=== PATIENT | female | born 1995 | race Caucasian/White ===

== ENCOUNTER 2021-08-30 02:55 | Inpatient (IN) | payer BC, MEDICAID ==
[2021-08-30] MEDS ORDERED: Nalbuphine 10 MG/1 ML Vial IVPUSH PRN (03:44)
[2021-08-30] MEDS ORDERED: Ondansetron 4 MG/2 ML SDV IVPUSH PRN (03:44)
[2021-08-30] MEDS ORDERED: Oxytocin/Lactated Ringers 10 UNIT/1,000 ML BAG IV SCH ×2 (03:45→05:00)
--- NOTE | 2021-08-30 03:46 | PCM.LDHP ---
L&D History of Present Illness - General Date of Service: 08/30/21 Admit Problem/Dx: Patient Status Order with Admit Dx/Problem 08/30/21 03:04 Patient Status [ADT] Routine 08/30/21 03:44 Patient Status [ADT] Routine Admission Diagnosis/Problem Admission Diagnosis/Problem Source of Information: Patient History Limitations: Reports: No Limitations - History of Present Illness Introduction:: Patient is a 26 y/o at 39 2/7 wks who presents with SROM. Occurred at about 2100 yesterday. Doing well currently. No particularly bothersome contractions yet - Related Data Allergies/Adverse Reactions: Allergies Allergy/AdvReac Type Severity Reaction Status Date / Time fentanyl Allergy Tachycardia Verified 08/30/21 05:53 hydromorphone [From Dilaudid] Allergy Tachycardia Verified 08/30/21 05:53 Home Medications: Home Meds Vits #93/Iron Fum/FA [ Formula Tablet] 1 tab PO DAILY 08/15/21 [History] Past Medical History : 2 Para: 1 LMP (Approximate): Other (See Below) (Hx of hemorrhage) Musculoskeletal History: Reports: Other (See Below) (Scoliosis and Klippel-Feil syndrome) - Past Surgical History HEENT Surgical History: Reports: Tonsillectomy GI Surgical History: Reports: Appendectomy Dermatological Surgical History: Reports: Other (See Below) (Lip repair) Social & Family History - Tobacco Use Tobacco Use Status *Q: Former Tobacco User - Alcohol Use Alcohol Use History: No - Recreational Drug Use Recreational Drug Type: Reports: Marijuana/Hashish H&P Review of Systems - Review of Systems: Review Of Systems: See Below General: Reports: No Symptoms Pulmonary: Reports: No Symptoms Cardiovascular: Reports: No Symptoms Gastrointestinal: Reports: No Symptoms Genitourinary: Reports: No Symptoms Musculoskeletal: Reports: No Symptoms Psychiatric: Reports: No Symptoms Neurological: Reports: No Symptoms L&D Exam - Exam Exam: See Below - OB Specific Contraction Intensity: Irritability Movement: Active Heart Tones: Present Heart Tones per Min: 125 Heart Rate (FHR) Variability: Moderate (6-25 bpm) Presentation: Vertex - Crowell Score Crowell Score Cervix Position: Midposition Crowell Score Consistency: Medium Crowell Score Effacement: 51-70% Crowell Score Dilation: 1-2 cm Crowell Score 's Station: -2 Crowell Score Total: 6 - Exam General: Alert, Oriented, Cooperative Lungs: Clear to Auscultation, Normal Respiratory Effort Cardiovascular: Regular Rate, Regular Rhythm GI/Abdominal Exam: Soft, Non-Tender Genitourinary: Normal external exam Extremities: Normal Inspection Skin: Warm, Dry, Intact - Patient Data Lab Results Last 24 hrs: Laboratory Results - last 24 hr 08/30/21 Range/Units 03:20 Membrane Rupture Positive H Result Diagrams: 08/30/21 04:00 - Problem List (1) 39 weeks gestation of SNOMED Code(s): 00028010 ICD Code: Z3A.39 - 39 WEEKS GESTATION OF Status: Acute Current Visit: Yes (2) PROM (premature rupture of membranes) SNOMED Code(s): 90854418 ICD Code: O42.90 - MICHAEL ROM, 7TH0 BETW RUPT & ONST LABR, UNSP WEEKS OF GEST Status: Acute Current Visit: Yes Qualifiers: PROM onset of labor timing: unspecified duration between rupture of membranes and onset of labor PROM gestational age: full term Qualified Code(s): O42.92 - Full-term premature rupture of membranes, unspecified as to length of time between rupture and onset of labor Problem List Initiated/Reviewed/Updated: Yes Orders Last 24hrs: Active Orders 24 hr Category Date Time Status Patient Status [ADT] Routine ADT 08/30/21 03:04 Active Patient Status [ADT] Routine ADT 08/30/21 03:44 Ordered Activity as Tolerated [RC] PFP Care 08/30/21 03:44 Ordered Communication Order [RC] ASDIRECTED Care 08/30/21 03:44 Ordered Heart Tones [RC] ASDIRECTED Care 08/30/21 03:44 Ordered Non Stress Test [RC] PER UNIT ROUTINE Care 08/30/21 03:04 Active Notify Provider [RC] PFP Care 08/30/21 03:44 Ordered Notify Provider [RC] PRN Care 08/30/21 03:44 Ordered Peripheral IV Care [RC] . DIRECTED Care 08/30/21 03:44 Ordered Vaginal Exam [RC] PRN Care 08/30/21 03:04 Active Vital Signs [RC] PER UNIT ROUTINE Care 08/30/21 03:04 Active Vital Signs [RC] PER UNIT ROUTINE Care 08/30/21 03:44 Ordered Regular Diet [DIET] Diet 08/30/21 Breakfast Ordered CBC W/O DIFF,HEMOGRAM [HEME] Routine Lab 08/30/21 03:44 Ordered CORONAVIRUS COVID-19 SUSIE [MOLEC] Stat Lab 08/30/21 03:45 Ordered RAPID PLASMA REAGIN,RPR [CHEM] Routine Lab 08/30/21 03:44 Ordered TYPE AND SCREEN [BBK] Routine Lab 08/30/21 03:44 Ordered Lactated Ringers [Ringers, Lactated] 1,000 ml Med 08/30/21 03:45 Ordered IV ASDIRECTED Nalbuphine [Nubain] Med 08/30/21 03:44 Ordered 10 mg IVPUSH Q2H PRN Ondansetron [Zofran] Med 08/30/21 03:44 Ordered 4 mg IVPUSH Q4H PRN Oxytocin/Lactated Ringers [Pitocin in LR 10 Units/1,000 Med 08/30/21 03:45 Ordered ML] 10 unit in 1,000 ml IV .CONTINUOUS Sodium Chloride 0.9% [Saline Flush] Med 08/30/21 09:00 Ordered 10 ml FLUSH 0900,2100 Electronic Heart Tones Ext w TOCO [WOMSER] Oth 08/30/21 03:44 Ordered Routine Electronic Heart Tones Internal [WOMSER] Per Unit Oth 08/30/21 03:44 Ordered Routine Peripheral IV Insertion Adult [OM.PC] Routine Oth 08/30/21 03:44 Ordered Resuscitation Status Routine Resus Stat 08/30/21 03:04 Ordered Assessment/Plan Comment:: * Labs to be done * GBS negative * Given already 6 hours post rupture without significant contractions recommend augmentation with pitocin. She agrees. * Pain management per patient preference * Anticipate
[2021-08-30] MEDS: Lactated Ringers 1,000 ML IV SCH ×3 (04:50→11:30)
[2021-08-30] MEDS ORDERED: Sodium Chloride 0.9% 10 ML Syringe FLUSH SCH (09:00)
[2021-08-30] MEDS ORDERED: diphenhydrAMINE 50 MG/ML SDV IVPUSH PRN (10:27)
[2021-08-30] MEDS ORDERED: Lidocaine 1.5% with EPINEPHrine 1:200,000 5 ML Amp ONE (10:27)
[2021-08-30] MEDS ORDERED: ePHEDrine 50 MG/ML SDV IVPUSH PRN (10:27)
[2021-08-30] MEDS ORDERED: Bupivacaine/fentaNYL/NS 100 ML Bag EPIDUR PRN (10:27)
[2021-08-30] MEDS ORDERED: Bupivacaine 0.25% 10 ML SDV ONE (10:27)
--- NOTE | 2021-08-30 10:43 | PCM.PNLD ---
Labor Progress Note - VS & Meds Vital Signs: Last Vital Signs Temp 37.1 C 08/30/21 04:00 Pulse 100 08/30/21 04:00 Resp 16 08/30/21 04:00 BP 123/72 08/30/21 04:00 Pulse Ox 100 08/30/21 04:00 Active Medications: Current Medications Diphenhydramine HCl (Diphenhydramine 50 Mg/Ml Sdv) 25 mg IVPUSH Q6H PRN PRN Reason: pruritis Ephedrine Sulfate (Ephedrine 50 Mg/Ml Sdv) 5 mg IVPUSH ASDIRECTED PRN PRN Reason: Hypotension Fentanyl (Fentanyl 100 Mcg/2 Ml Sdv) 100 mcg EPIDUR Q3H PRN PRN Reason: Pain Fentanyl/Bupivacaine HCl (Bupivacaine/Fentanyl/Ns 100 Ml Bag) 100 ml EPIDUR ASDIRECTED PRN PRN Reason: Pain Lactated Ringer's (Ringers, Lactated) 1,000 mls @ 100 mls/hr IV ASDIRECTED SANTIAGO Last Admin: 08/30/21 10:23 Dose: 999 mls/hr Documented by: Oxytocin/Lactated Ringer's (Pitocin In Lr 10 Units/1,000 Ml) 10 unit in 1,000 mls @ 500 mls/hr IV .CONTINUOUS SANTIAGO Oxytocin/Lactated Ringer's (Pitocin In Lr 10 Units/1,000 Ml) 10 unit in 1,000 mls @ 12 mls/hr IV TITRATE SANTIAGO; Protocol Last Titration: 08/30/21 09:15 Dose: 14 munits/min, 84 mls/hr Documented by: Nalbuphine HCl (Nalbuphine 10 Mg/1 Ml Vial) 10 mg IVPUSH Q2H PRN PRN Reason: Pain Ondansetron HCl (Ondansetron 4 Mg/2 Ml Sdv) 4 mg IVPUSH Q4H PRN PRN Reason: Nausea/Vomiting Sodium Chloride (Sodium Chloride 0.9% 10 Ml Syringe) 10 ml FLUSH 0900,2100 SANTIAGO - Uterine Contractions Uterine Monitoring Mode: External [place] Contraction Intensity: Moderate - Monitoring Monitor Mode: External Ultrasound Heart Rate (FHR) Baseline: 140 Heart Rate (FHR) Variability: Moderate (6-25 bpm) Accelerations: Present, 15x15 Decelerations: None Strip Review: Category I - Vaginal Exam Dilation (cm): 3-4 Effacement (Percent): 80 Station: -2 Cervical Position: Posterior - Labor Progress (Free Text) Labor Progress: Doing well. Requesting epidural. Repeat US confirms still VTX presentation.
--- NOTE | 2021-08-30 10:46 | PCM.PREANE ---
Preanesthetic Assessment - Anesthesia/Transfusion/Family Hx Anesthesia History: Prior Anesthesia Without Reaction Transfusion History: Prior Transfusion Without Reaction - Review of Systems General: No Symptoms Pulmonary: No Symptoms Cardiovascular: No Symptoms, Other (AV septum defect) Gastrointestinal: No Symptoms Neurological: No Symptoms, Other (Klipper Feil Syndrome, thoracic scoliosis) Other: Reports: None - Physical Assessment Vital Signs: Last Vital Signs Temp 98.8 F 08/30/21 04:00 Pulse 100 08/30/21 04:00 Resp 16 08/30/21 04:00 BP 123/72 08/30/21 04:00 Pulse Ox 100 08/30/21 04:00 Height: 1.5 m Weight: 62.596 kg ASA Class: 2 Mental Status: Alert & Oriented x3 Airway Class: Mallampati = 2 Dentition: Reports: Normal Dentition, Broken Tooth/Teeth (left bottom molars), Missing Tooth/Teeth (upper right molars) Thyro-Mental Finger Breadths: 3 Mouth Opening Finger Breadths: 3 ROM/Head Extension: Full Lungs: Clear to Auscultation, Normal Respiratory Effort Cardiovascular: Regular Rate, Regular Rhythm, Murmurs - Lab Values: Laboratory Last Values WBC 10.42 K/mm3 (3.98-10.04) H 08/30/21 04:00 RBC 3.75 M/mm3 (3.98-5.22) L 08/30/21 04:00 Hgb 11.0 gm/dl (11.2-15.7) L 08/30/21 04:00 Hct 34.3 % (34.1-44.9) 08/30/21 04:00 MCV 91.5 fl (79.4-94.8) 08/30/21 04:00 MCH 29.3 pg (25.6-32.2) 08/30/21 04:00 MCHC 32.1 g/dl (32.2-35.5) L 08/30/21 04:00 RDW Std Deviation 46.6 fL (36.4-46.3) H 08/30/21 04:00 Plt Count 327 K/mm3 (182-369) 08/30/21 04:00 MPV 10.4 fl (9.4-12.3) 08/30/21 04:00 Urine Color Yellow (Yellow) 08/30/21 07:30 Urine Appearance Clear (Clear) 08/30/21 07:30 Urine pH 7.0 (5.0-8.0) 08/30/21 07:30 Ur Specific [place] 1.010 (1.005-1.030) 08/30/21 07:30 Urine Protein Negative (Negative) 08/30/21 07:30 Urine Glucose (UA) Negative (Negative) 08/30/21 07:30 Urine Ketones Negative (Negative) 08/30/21 07:30 Urine Occult Blood Negative (Negative) 08/30/21 07:30 Urine Nitrite Negative (Negative) 08/30/21 07:30 Urine Bilirubin Negative (Negative) 08/30/21 07:30 Urine Urobilinogen 0.2 (0.2-1.0) 08/30/21 07:30 Ur Leukocyte Esterase Trace (Negative) H 08/30/21 07:30 Urine RBC 0-5 /hpf (0-5) 08/30/21 07:30 Urine WBC 0-5 /hpf (0-5) 08/30/21 07:30 Ur Squamous Epith Cells 0-5 /hpf (0-5) 08/30/21 07:30 Urine Bacteria Rare /hpf (FEW) 08/30/21 07:30 Urine Mucus Rare /hpf (FEW) 08/30/21 07:30 Membrane Rupture Positive H 08/30/21 03:20 Urine Opiates Screen Negative (FMFQSA=258) 08/30/21 08:32 Ur Buprenorphine Scrn Negative (CUTOFF=10) 08/30/21 08:32 Ur Oxycodone Screen Negative (HJF5TF=159) 08/30/21 08:32 Urine Methadone Screen Negative (CLHVOF=775) 08/30/21 08:32 Ur Propoxyphene Screen Negative (QPNWYT=866) 08/30/21 08:32 Ur Barbiturates Screen Negative (KZSVGG=621) 08/30/21 08:32 Ur Tricyclics Screen Negative (KPJOTN=365) 08/30/21 08:32 Ur Phencyclidine Scrn Negative (CUTOFF=25) 08/30/21 08:32 Ur Amphetamine Screen Negative (HFIWZS=385) 08/30/21 08:32 U Methamphetamines Scrn Negative (YFZIAB=776) 08/30/21 08:32 U Benzodiazepines Scrn Negative (GSMETH=489) 08/30/21 08:32 U Cocaine Metab Screen Negative (RCXIOZ=989) 08/30/21 08:32 U Marijuana (THC) Screen Negative (CUTOFF=50) 08/30/21 08:32 SARS-CoV-2 RNA (SUSIE) Negative (NEGATIVE) 08/30/21 05:56 Blood Type O POSITIVE 08/30/21 04:00 Gel Antibody Screen Negative 08/30/21 04:00 - Allergies Allergies/Adverse Reactions: Allergies Allergy/AdvReac Type Severity Reaction Status Date / Time hydromorphone [From Dilaudid] Allergy Tachycardia Verified 08/30/21 05:53 fentanyl AdvReac Mild Tachycardia Unverified 08/30/21 10:44 - Acknowledgements Anesthesia Type Planned: Epidural Pt an Appropriate Candidate for the Planned Anesthesia: Yes Alternatives and Risks of Anesthesia Discussed w Pt/Guardian: Yes Pt/Guardian Understands and Agrees with Anesthesia Plan: Yes PreAnesthesia Questionnaire Cardiovascular History: Reports: Congenital Septal Defect [employer]OT[employer] History: Reports: Musculoskeletal History: Reports: Other (See Below) (Scoliosis and Klippel-Feil syndrome) Other Musculoskeletal History: Scoliosis, Klippel-Feil Syndrome - Past Surgical History HEENT Surgical History: Reports: Tonsillectomy GI Surgical History: Reports: Appendectomy Dermatological Surgical History: Reports: Other (See Below) (Lip repair) - SUBSTANCE USE Tobacco Use Status *Q: Former Tobacco User Tobacco Use Within Last Twelve Months: Cigarettes Second Hand Smoke Exposure: No Recreational Drug Use History: No Recreational Drug Type: Reports: Marijuana/Hashish - HOME MEDS Home Medications: Home Meds Vits #93/Iron Fum/FA [ Formula Tablet] 1 tab PO DAILY 08/15/21 [History] - CURRENT (IN HOUSE) MEDS Current Meds: Current Medications Diphenhydramine HCl (Diphenhydramine 50 Mg/Ml Sdv) 25 mg IVPUSH Q6H PRN PRN Reason: pruritis Ephedrine Sulfate (Ephedrine 50 Mg/Ml Sdv) 5 mg IVPUSH ASDIRECTED PRN PRN Reason: Hypotension Fentanyl (Fentanyl 100 Mcg/2 Ml Sdv) 100 mcg EPIDUR Q3H PRN PRN Reason: Pain Fentanyl/Bupivacaine HCl (Bupivacaine/Fentanyl/Ns 100 Ml Bag) 100 ml EPIDUR ASDIRECTED PRN PRN Reason: Pain Lactated Ringer's (Ringers, Lactated) 1,000 mls @ 100 mls/hr IV ASDIRECTED SANTIAGO Last Admin: 08/30/21 10:23 Dose: 999 mls/hr Documented by: Oxytocin/Lactated Ringer's (Pitocin In Lr 10 Units/1,000 Ml) 10 unit in 1,000 mls @ 500 mls/hr IV .CONTINUOUS SANTIAGO Oxytocin/Lactated Ringer's (Pitocin In Lr 10 Units/1,000 Ml) 10 unit in 1,000 mls @ 12 mls/hr IV TITRATE SANTIAGO; Protocol Last Titration: 08/30/21 09:15 Dose: 14 munits/min, 84 mls/hr Documented by: Nalbuphine HCl (Nalbuphine 10 Mg/1 Ml Vial) 10 mg IVPUSH Q2H PRN PRN Reason: Pain Ondansetron HCl (Ondansetron 4 Mg/2 Ml Sdv) 4 mg IVPUSH Q4H PRN PRN Reason: Nausea/Vomiting Sodium Chloride (Sodium Chloride 0.9% 10 Ml Syringe) 10 ml FLUSH 0900,2100 [facility]
[2021-08-30] MEDS: fentaNYL 100 MCG/2 ML SDV EPIDUR PRN ×2 (10:50→15:58)
--- NOTE | 2021-08-30 14:57 | PCM.PNLD ---
Labor Progress Note - VS & Meds Vital Signs: Last Vital Signs Temp 37.1 C 08/30/21 04:00 Pulse 100 08/30/21 04:00 Resp 16 08/30/21 04:00 BP 123/72 08/30/21 04:00 Pulse Ox 100 08/30/21 04:00 Active Medications: Current Medications Diphenhydramine HCl (Diphenhydramine 50 Mg/Ml Sdv) 25 mg IVPUSH Q6H PRN PRN Reason: pruritis Ephedrine Sulfate (Ephedrine 50 Mg/Ml Sdv) 5 mg IVPUSH ASDIRECTED PRN PRN Reason: Hypotension Fentanyl (Fentanyl 100 Mcg/2 Ml Sdv) 100 mcg EPIDUR Q3H PRN PRN Reason: Pain Last Admin: 08/30/21 10:50 Dose: 100 mcg Documented by: Fentanyl/Bupivacaine HCl (Bupivacaine/Fentanyl/Ns 100 Ml Bag) 100 ml EPIDUR ASDIRECTED PRN PRN Reason: Pain Last Admin: 08/30/21 10:51 Dose: 100 ml Documented by: Lactated Ringer's (Ringers, Lactated) 1,000 mls @ 100 mls/hr IV ASDIRECTED SANTIAGO Last Admin: 08/30/21 11:30 Dose: 100 mls/hr Documented by: Oxytocin/Lactated Ringer's (Pitocin In Lr 10 Units/1,000 Ml) 10 unit in 1,000 mls @ 500 mls/hr IV .CONTINUOUS SANTIAGO Oxytocin/Lactated Ringer's (Pitocin In Lr 10 Units/1,000 Ml) 10 unit in 1,000 mls @ 12 mls/hr IV TITRATE SANTIAGO; Protocol Last Titration: 08/30/21 14:41 Dose: 18 munits/min, 108 mls/hr Documented by: Nalbuphine HCl (Nalbuphine 10 Mg/1 Ml Vial) 10 mg IVPUSH Q2H PRN PRN Reason: Pain Ondansetron HCl (Ondansetron 4 Mg/2 Ml Sdv) 4 mg IVPUSH Q4H PRN PRN Reason: Nausea/Vomiting Sodium Chloride (Sodium Chloride 0.9% 10 Ml Syringe) 10 ml FLUSH 0900,2100 SANTIAGO Last Admin: 08/30/21 13:54 Dose: Not Given Documented by: - Uterine Contractions Uterine Monitoring Mode: External [place] Contraction Intensity: Moderate - Monitoring Monitor Mode: External Ultrasound Heart Rate (FHR) Baseline: 130 Heart Rate (FHR) Variability: Moderate (6-25 bpm) Accelerations: Present, 15x15 Decelerations: None Strip Review: Category I - Vaginal Exam Dilation (cm): 4 Effacement (Percent): 80 Station: -1 Cervical Position: Midposition - Labor Progress (Free Text) Labor Progress: Doing well. On 20 of pitocin. Making slow, but consistent change. IUPC placed. Will increase pitocin to 30 as needed.
--- NOTE | 2021-08-30 17:38 | PCM.DEL ---
L & D Note - General Info Date of Service: 08/30/21 - Delivery Note Labor: Augmented by Oxytocin Delivery Outcome: Livebirth Delivery Method: Spontaneous Vaginal Delivery-Single Delivery Mode: Spontaneous Presentation: Left Occiput Anterior (REYNALDO) Nuchal Cord: Present (tight, not reduced ) Anesthesia Type: Epidural Amniotic Fluid Description: Clear Episiotomy Type: None Laceration: None Placenta: Intact, Spontaneous Cord: 3 Vessels Estimated Blood Loss: 300 Resuscitation Needed: Yes : Bulb Syringe, Stimulated, Warmed, Goldonna Used, Warmer Used Delivery Comments (Free Text/Narrative):: Patient found to be complete and began pushing. With maternal pushing effort head delivered from REYNALDO presentation. Tight nuchal, not reduced. With gentle downward traction the shoulders and body delivered. placed on maternal abdomen. Cord clamped and cut. Cord blood obtained. Placenta allowed time to separate and expelled intact. Inspection of perineum with no lacerations - General Info Date of Service: 08/30/21 - Patient Data Vitals - Most Recent: Last Vital Signs Temp 37.1 C 08/30/21 04:00 Pulse 100 08/30/21 04:00 Resp 16 08/30/21 04:00 BP 123/72 08/30/21 04:00 Pulse Ox 100 08/30/21 04:00 Weight - Most Recent: 62.596 kg I&O - Last 24 Hours: Intake & Output 08/30/21 08/30/21 08/30/21 06:59 14:59 22:59 Intake Total 2000 Output Total 1500 Balance 2000 -1500 - Exam Urinary Catheter Total Time: 0Days 4Hours - Problem List & Annotations (1) 39 weeks gestation of SNOMED Code(s): 65977875 Code(s): Z3A.39 - 39 WEEKS GESTATION OF Status: Acute Current Visit: Yes (2) PROM (premature rupture of membranes) SNOMED Code(s): 75000264 Code(s): O42.90 - MICHAEL ROM, 7TH0 BETW RUPT & ONST LABR, UNSP WEEKS OF GEST Status: Acute Current Visit: Yes Qualifiers: PROM onset of labor timing: unspecified duration between rupture of membranes and onset of labor PROM gestational age: full term Qualified Code(s): O42.92 - Full-term premature rupture of membranes, unspecified as to length of time between rupture and onset of labor (3) Vaginal delivery SNOMED Code(s): 370859330 Code(s): O80 - ENCOUNTER FOR FULL-TERM UNCOMPLICATED DELIVERY Status: Acute Current Visit: Yes - Problem List Review Problem List Initiated/Reviewed/Updated: Yes - My Orders Last 24 Hours: My Active Orders 08/30/21 03:04 Patient Status [ADT] Routine Vaginal Exam [RC] PRN Vital Signs [RC] PER UNIT ROUTINE Resuscitation Status Routine 08/30/21 03:44 Patient Status [ADT] Routine Activity as Tolerated [RC] PFP Communication Order [RC] ASDIRECTED Heart Tones [RC] ASDIRECTED Notify Provider [RC] PFP Notify Provider [RC] PRN Peripheral IV Care [RC] . DIRECTED Vital Signs [RC] PER UNIT ROUTINE Nalbuphine [Nubain] 10 mg IVPUSH Q2H PRN Ondansetron [Zofran] 4 mg IVPUSH Q4H PRN Electronic Heart Tones Ext w TOCO [WOMSER] Routine Electronic Heart Tones Internal [WOMSER] Per Unit Routine Peripheral IV Insertion Adult [OM.PC] Routine 08/30/21 03:45 Lactated Ringers [Ringers, Lactated] 1,000 ml IV ASDIRECTED Oxytocin/Lactated Ringers [Pitocin in LR 10 Units/1,000 ML] 10 unit in 1,000 ml IV .CONTINUOUS 08/30/21 04:00 RAPID PLASMA REAGIN,RPR [CHEM] Routine 08/30/21 05:00 Oxytocin/Lactated Ringers [Pitocin in LR 10 Units/1,000 ML] 10 unit in 1,000 ml IV TITRATE 08/30/21 Breakfast Regular Diet [DIET] 08/30/21 09:00 Sodium Chloride 0.9% [Saline Flush] 10 ml FLUSH 0900,2100 - Assessment Assessment:: PPD#0 - Plan Plan:: * Routine cares * Discharge home in 1-2 days
[2021-08-30] MEDS ORDERED: Docusate Sodium 100 MG Cap PO PRN (18:13)
[2021-08-30] MEDS ORDERED: Ibuprofen 600 MG Tab PO PRN (18:13)
[2021-08-30] MEDS ORDERED: Benzocaine/Menthol 20%-0.5% Spray 78 GM Cannister TOP PRN (18:13)
[2021-08-30] MEDS ORDERED: Acetaminophen 325 MG Tab PO PRN (18:13)
[2021-08-30] MEDS ORDERED: Witch Hazel Medicated Pads 40/Jar TOP PRN (18:13)
--- NOTE | 2021-08-31 07:32 | PCM.PNPP ---
- General Info Date of Service: 08/31/21 Functional Status: Reports: Pain Controlled, Tolerating Diet, Ambulating, Urinating - Review of Systems General: Reports: No Symptoms Pulmonary: Reports: No Symptoms Cardiovascular: Reports: No Symptoms Gastrointestinal: Reports: No Symptoms Genitourinary: Reports: No Symptoms Musculoskeletal: Reports: No Symptoms - General Info Date of Service: 08/31/21 - Patient Data Vital Signs - Most Recent: Last Vital Signs Temp 36.9 C 08/31/21 04:05 Pulse 88 08/31/21 04:05 Resp 14 08/31/21 04:05 BP 108/61 08/31/21 04:05 Pulse Ox 99 08/31/21 04:05 Weight - Most Recent: 62.596 kg I&O - Last 24 Hours: Intake & Output 08/30/21 08/31/21 08/31/21 22:59 06:59 14:59 Intake Total 1800 Output Total 1860 Balance -60 Lab Results - Last 24 Hours: Laboratory Results - last 24 hr 08/30/21 08/30/21 08/30/21 Range/Units 04:00 07:30 08:32 Urine Color Yellow (Yellow) Urine Appearance Clear (Clear) Urine pH 7.0 (5.0-8.0) Ur Specific [place] 1.010 (1.005-1.030) Urine Protein Negative (Negative) Urine Glucose (UA) Negative (Negative) Urine Ketones Negative (Negative) Urine Occult Blood Negative (Negative) Urine Nitrite Negative (Negative) Urine Bilirubin Negative (Negative) Urine Urobilinogen 0.2 (0.2-1.0) Ur Leukocyte Esterase Trace H (Negative) Urine RBC 0-5 (0-5) /hpf Urine WBC 0-5 (0-5) /hpf Ur Squamous Epith Cells 0-5 (0-5) /hpf Urine Bacteria Rare (FEW) /hpf Urine Mucus Rare (FEW) /hpf Urine Opiates Screen Negative (YISWUI=355) Ur Buprenorphine Scrn Negative (CUTOFF=10) Ur Oxycodone Screen Negative (YOJ8LI=466) Urine Methadone Screen Negative (ZIKDCV=035) Ur Propoxyphene Screen Negative (CYVIPE=994) Ur Barbiturates Screen Negative (UVGGEL=342) Ur Tricyclics Screen Negative (TDJMQW=944) Ur Phencyclidine Scrn Negative (CUTOFF=25) Ur Amphetamine Screen Negative (SSBCHW=415) U Methamphetamines Scrn Negative (RYQYBJ=887) U Benzodiazepines Scrn Negative (HWKDTZ=797) U Cocaine Metab Screen Negative (IKXGMI=951) U Marijuana (THC) Screen Negative (CUTOFF=50) RPR Non-reactive (NONREACTIVE) Med Orders - Current: Current Medications Acetaminophen (Acetaminophen 325 Mg Tab) 650 mg PO Q4H PRN PRN Reason: mild pain or fever Benzocaine/Menthol (Benzocaine/Menthol 20%-0.5% [place] 78 Gm Cannister) 0 gm TOP ASDIRECTED PRN PRN Reason: Perineal Comfort Measure Docusate Sodium (Docusate Sodium 100 Mg Cap) 100 mg PO BID PRN PRN Reason: Constipation Ibuprofen (Ibuprofen 600 Mg Tab) 600 mg PO Q6H PRN PRN Reason: Mild pain or fever Witch Meliton (Witch Meliton Medicated Pads 40/Jar) 1 pad TOP ASDIRECTED PRN PRN Reason: Perineal Comfort Measure Discontinued Medications Diphenhydramine HCl (Diphenhydramine 50 Mg/Ml Sdv) 25 mg IVPUSH Q6H PRN PRN Reason: pruritis Ephedrine Sulfate (Ephedrine 50 Mg/Ml Sdv) 5 mg IVPUSH ASDIRECTED PRN PRN Reason: Hypotension Fentanyl (Fentanyl 100 Mcg/2 Ml Sdv) 100 mcg EPIDUR Q3H PRN PRN Reason: Pain Last Admin: 08/30/21 15:58 Dose: 100 mcg Documented by: Fentanyl/Bupivacaine HCl (Bupivacaine/Fentanyl/Ns 100 Ml Bag) 100 ml EPIDUR ASDIRECTED PRN PRN Reason: Pain Last Admin: 08/30/21 10:51 Dose: 100 ml Documented by: Lactated Ringer's (Ringers, Lactated) 1,000 mls @ 100 mls/hr IV ASDIRECTED [facility] Last Admin: 08/30/21 11:30 Dose: 100 mls/hr Documented by: Oxytocin/Lactated Ringer's (Pitocin In Lr 10 Units/1,000 Ml) 10 unit in 1,000 mls @ 500 mls/hr IV .CONTINUOUS [facility] Oxytocin/Lactated Ringer's (Pitocin In Lr 10 Units/1,000 Ml) 10 unit in 1,000 mls @ 12 mls/hr IV TITRATE [facility]; Protocol Last Titration: 12/18/21 17:25 Dose: Infused Documented by: Nalbuphine HCl (Nalbuphine 10 Mg/1 Ml Vial) 10 mg IVPUSH Q2H PRN PRN Reason: Pain Ondansetron HCl (Ondansetron 4 Mg/2 Ml Sdv) 4 mg IVPUSH Q4H PRN PRN Reason: Nausea/Vomiting Sodium Chloride (Sodium Chloride 0.9% 10 Ml Syringe) 10 ml FLUSH 0900,2100 [facility] Last Admin: 08/30/21 13:54 Dose: Not Given Documented by: - Interaction Disposition, : in Room with Family Interaction: Holding Infant Feeding: Breastfed Infant; Nursed Well Support Person: Mother - Recovery Exam Fundal Tone: Firm Fundal Level: 2 Fingerbreadths Below Umbilicus Fundal Placement: Midline Lochia Amount: Small Lochia Color: Rubra/Red Perineum Description: Intact, Minimal Bruising/Swelling, Other (see below) Other Perinuem Description: prolapsed cervix (present @ delivery, MD aware) Episiotomy/Laceration: None Bladder Status: Nonpalpable, Voiding Urinary Elimination: Voided - Exam General: Alert, Oriented, Cooperative GI/Abdominal Exam: Soft, Non-Tender - Problem List & Annotations (1) 39 weeks gestation of SNOMED Code(s): 14993917 Code(s): Z3A.39 - 39 WEEKS GESTATION OF Status: Acute Current Visit: Yes (2) PROM (premature rupture of membranes) SNOMED Code(s): 98229291 Code(s): O42.90 - MICHAEL ROM, 7TH0 BETW RUPT & ONST LABR, UNSP WEEKS OF GEST Status: Acute Current Visit: Yes Qualifiers: PROM onset of labor timing: unspecified duration between rupture of membranes and onset of labor PROM gestational age: full term Qualified Code(s): O42.92 - Full-term premature rupture of membranes, unspecified as to length of time between rupture and onset of labor (3) Vaginal delivery SNOMED Code(s): 042205097 Code(s): O80 - ENCOUNTER FOR FULL-TERM UNCOMPLICATED DELIVERY Status: Acute Current Visit: Yes - Problem List Review Problem List Initiated/Reviewed/Updated: Yes - My Orders Last 24 Hours: My Active Orders 08/30/21 Dinner Regular Diet [DIET] 08/30/21 18:13 Acetaminophen [TylenoL] 650 mg PO Q4H PRN Benzocaine/Menthol [Dermoplast Pain Relief 20%-0.5% [place]] See Dose Instructions TOP ASDIRECTED PRN Docusate Sodium [Colace] 100 mg PO BID PRN Ibuprofen [Motrin] 600 mg PO Q6H PRN witch Meliton [Tucks] 1 pad TOP ASDIRECTED PRN Heat Therapy [OM.PC] PRN 08/30/21 18:13 Activity as Tolerated [RC] PER UNIT ROUTINE Vital Signs [RC] ,15,, Assess Lochia [WOMSER] Per Unit Routine Assess Uterine Involution [WOMSER] Per Unit Routine Breast Pump [WOMSER] Per Unit Routine Ice Therapy [OM.PC] Per Unit Routine Perineal Care [OM.PC] Per Unit Routine Peripheral IV Discontinue [OM.PC] Routine Sitz Bath [OM.PC] Per Unit Routine 08/31/21 18:13 Heat Therapy [OM.PC] PRN - Assessment Assessment:: PPD#1 - Plan Plan:: * Routine cares * Breast feeding * Discharge home today
--- NOTE | 2021-08-31 12:28 | PCM.DCSUM1 ---
Discharge Summary - Discharge Data Discharge Date: 08/31/21 Discharge Disposition: Home, Self-Care 01 Condition: Good - Referral to Home Health Primary Care Physician: Cassidy Caballero NP - Discharge Diagnosis/Problem(s) (1) 39 weeks gestation of SNOMED Code(s): 25968499 ICD Code: Z3A.39 - 39 WEEKS GESTATION OF Status: Acute Current Visit: Yes (2) PROM (premature rupture of membranes) SNOMED Code(s): 86796472 ICD Code: O42.90 - MICHAEL ROM, 7TH0 BETW RUPT & ONST LABR, UNSP WEEKS OF GEST Status: Acute Current Visit: Yes Qualifiers: PROM onset of labor timing: unspecified duration between rupture of membranes and onset of labor PROM gestational age: full term Qualified Code(s): O42.92 - Full-term premature rupture of membranes, unspecified as to length of time between rupture and onset of labor (3) Vaginal delivery SNOMED Code(s): 720854993 ICD Code: O80 - ENCOUNTER FOR FULL-TERM UNCOMPLICATED DELIVERY Status: Acute Current Visit: Yes - Patient Summary/Data Complications: None Consults: None Recommended Follow-up Testing/Procedures: None Hospital Course: 26 y/o presented at 39 2/7 wks with SROM. Was augmented with pitocin. Progressed well. Underwent . See delivery note. did well and was discharged home on PPD#1 - Patient Instructions Diet: Regular Diet as Tolerated Activity: As Tolerated Activity, Other: Pelvic rest for 6 weeks Driving: May Drive Today Showering/Bathing: May Shower Showering/Bathing, Other: May Bathe Notify Provider of: Fever, Increased Pain, Swelling and Redness, Drainage, Nausea and/or Vomiting - Discharge Plan *PRESCRIPTION DRUG MONITORING PROGRAM REVIEWED*: Not Applicable *COPY OF PRESCRIPTION DRUG MONITORING REPORT IN PATIENT SARIAH: Not Applicable Home Medications: Home Meds Vits #93/Iron Fum/FA [ Formula Tablet] 1 tab PO DAILY 08/15/21 [History] Acetaminophen [Tylenol] 650 mg PO Q4H PRN tablet 08/31/21 [Rx] Docusate Sodium [Colace] 100 mg PO BID PRN cap 08/31/21 [Rx] Ibuprofen [Motrin] 600 mg PO Q6H PRN tablet 08/31/21 [Rx] Referrals: Mariela Matthew MD [Physician] - (3 weeks for check ) - Discharge Summary/Plan Comment DC Time >30 min.: No Total # of Minutes for Discharge Time: 15 - Patient Data Vitals - Most Recent: Last Vital Signs Temp 36.9 C 08/31/21 04:05 Pulse 88 08/31/21 04:05 Resp 14 08/31/21 04:05 BP 108/61 08/31/21 04:05 Pulse Ox 99 08/31/21 04:05 Weight - Most Recent: 62.596 kg I&O - Last 24 hours: Intake & Output 08/30/21 08/31/21 08/31/21 22:59 06:59 14:59 Intake Total 1800 Output Total 1860 Balance -60 Lab Results - Last 24 hrs: Laboratory Results - last 24 hr 08/30/21 Range/Units 04:00 RPR Non-reactive (NONREACTIVE) Med Orders - Current: Current Medications Acetaminophen (Acetaminophen 325 Mg Tab) 650 mg PO Q4H PRN PRN Reason: mild pain or fever Benzocaine/Menthol (Benzocaine/Menthol 20%-0.5% [place] 78 Gm Cannister) 0 gm TOP ASDIRECTED PRN PRN Reason: Perineal Comfort Measure Docusate Sodium (Docusate Sodium 100 Mg Cap) 100 mg PO BID PRN PRN Reason: Constipation Ibuprofen (Ibuprofen 600 Mg Tab) 600 mg PO Q6H PRN PRN Reason: Mild pain or fever Witch Suzanne (Witch Suzanne Medicated Pads 40/Jar) 1 pad TOP ASDIRECTED PRN PRN Reason: Perineal Comfort Measure Discontinued Medications Diphenhydramine HCl (Diphenhydramine 50 Mg/Ml Sdv) 25 mg IVPUSH Q6H PRN PRN Reason: pruritis Ephedrine Sulfate (Ephedrine 50 Mg/Ml Sdv) 5 mg IVPUSH ASDIRECTED PRN PRN Reason: Hypotension Fentanyl (Fentanyl 100 Mcg/2 Ml Sdv) 100 mcg EPIDUR Q3H PRN PRN Reason: Pain Last Admin: 08/30/21 15:58 Dose: 100 mcg Documented by: Fentanyl/Bupivacaine HCl (Bupivacaine/Fentanyl/Ns 100 Ml Bag) 100 ml EPIDUR ASDIRECTED PRN PRN Reason: Pain Last Admin: 08/30/21 10:51 Dose: 100 ml Documented by: Lactated Ringer's (Ringers, Lactated) 1,000 mls @ 100 mls/hr IV ASDIRECTED [facility] Last Admin: 08/30/21 11:30 Dose: 100 mls/hr Documented by: Oxytocin/Lactated Ringer's (Pitocin In Lr 10 Units/1,000 Ml) 10 unit in 1,000 mls @ 500 mls/hr IV .CONTINUOUS [facility] Oxytocin/Lactated Ringer's (Pitocin In Lr 10 Units/1,000 Ml) 10 unit in 1,000 mls @ 12 mls/hr IV TITRATE [facility]; Protocol Last Titration: 08/30/21 17:25 Dose: Infused Documented by: Nalbuphine HCl (Nalbuphine 10 Mg/1 Ml Vial) 10 mg IVPUSH Q2H PRN PRN Reason: Pain Ondansetron HCl (Ondansetron 4 Mg/2 Ml Sdv) 4 mg IVPUSH Q4H PRN PRN Reason: Nausea/Vomiting Sodium Chloride (Sodium Chloride 0.9% 10 Ml Syringe) 10 ml FLUSH 0900,2100 [facility] Last Admin: 08/30/21 13:54 Dose: Not Given Documented by:
--- NOTE | 2021-08-31 14:15 | PCM48HPAN ---
Post Anesthesia Note - EVALUATION WITHIN 48HRS OF ANESTHETIC Vital Signs in Normal Range: Yes Patient Participated in Evaluation: Yes Respiratory Function Stable: Yes Airway Patent: Yes Cardiovascular Function Stable: Yes Hydration Status Stable: Yes Pain Control Satisfactory: Yes Nausea and Vomiting Control Satisfactory: Yes Mental Status Recovered: Yes Vital Signs: Last Vital Signs Temp 36.9 C 08/31/21 04:05 Pulse 88 08/31/21 04:05 Resp 14 08/31/21 04:05 BP 108/61 08/31/21 04:05 Pulse Ox 99 08/31/21 04:05
== END 2021-08-31 18:07 | disposition home or self-care (01) | DRG 807 ==
LOC: JD.OBCHECK 02:55 → JD.OB 02:57 → JD.OBCHECK 03:43 → JD.OB 03:44 → OBSVTOIN 17:24 → JD.OB 17:25
PROVIDERS: ADMIT Obstetrics & Gynecology; ATTEND Obstetrics & Gynecology
PROC: 10E0XZZ Delivery of Products of Conception, External Approach (ICD-10-PCS; principal; 2021-08-30)
PROC: 3E0R3BZ Introduction of Anesthetic Agent into Spinal Canal, Percutaneous Approach (ICD-10-PCS; 2021-08-30)
PROC: 10H07YZ Insertion of Other Device into Products of Conception, Via Natural or Artificial Opening (ICD-10-PCS; 2021-08-30)
PROC: 00HU33Z Insertion of Infusion Device into Spinal Canal, Percutaneous Approach (ICD-10-PCS; 2021-08-30)
DX: O42.92 Full-term premature rupture of membranes, unspecified as to length of time between rupture and onset of labor (principal); Z37.0 Single live birth; Z3A.39 39 weeks gestation of pregnancy; O69.1XX0 Labor and delivery complicated by cord around neck, with compression, not applicable or unspecified; Z20.822 Contact with and (suspected) exposure to COVID-19
CPT/HCPCS: 36415; 51701; 51702; 59025; 59409; 80306; 81001; 84112; 85027; 86592; 86850; 86900; 86901; J2590; J3010; J3490; J7120; U0002